=== PATIENT | female | born 1970 | race Caucasian/White ===

== ENCOUNTER 2018-06-13 10:35 | Emergency (ER) | payer OTHER ==
[2018-06-13 11:33] LABS: ABSOLUTE EOSINOPHILS # (AUTO) 0.1 10^3/uL (0.0-0.6); ABSOLUTE LYMPHOCYTES (AUTO) 1.9 10^3/uL (0.5-4.7); ABSOLUTE MONOCYTES (AUTO) 0.3 10^3/uL (0.1-1.4); ABSOLUTE NEUT (AUTO) 5.8 10^3/uL (1.7-8.2); BASOPHILS % (AUTO) 0.5 % (0-2); EOSINOPHILS % (AUTO) 1.1 % (0-6); HEMATOCRIT 39.2 % (36.0-47.0); HEMOGLOBIN 13.3 g/dL (12.0-15.5); MEAN CORPUSCULAR HGB CONC 33.9 g/dL (32.0-36.0); MEAN CORPUSCULAR VOLUME 92 fl (80-97); MONOCYTES % (AUTO) 4.1 % (3-13); PLATELET COUNT 363 10^3/uL (150-450); RED BLOOD COUNT 4.28 10^6/uL (3.72-5.28); SEGMENTED NEUTROPHILS % (AUTO) 71.3 % (42-78); TOTAL CELLS COUNTED % (AUTO) 100 %; WHITE BLOOD COUNT 8.1 10^3/uL (4.0-10.5)
[2018-06-13 11:38] LABS: ALANINE AMINOTRANSFERASE 33 U/L (9-52); ALBUMIN 4.5 g/dL (3.5-5.0); ALKALINE PHOSPHATASE 72 U/L (38-126); ANION GAP 11 (5-19); ASPARTATE AMINO TRANSFERASE 31 U/L (14-36); BILIRUBIN,DIRECT 0.3 mg/dL (0.0-0.4); BILIRUBIN,TOTAL 0.5 mg/dL (0.2-1.3); BLOOD UREA NITROGEN 9 mg/dL (7-20); CALCIUM 9.2 mg/dL (8.4-10.2); CARBON DIOXIDE 24 mmol/L (22-30); CHLORIDE 102 mmol/L (98-107); GLUCOSE 111 mg/dL (75-110); POTASSIUM 4.1 mmol/L (3.6-5.0); SODIUM 137.1 mmol/L (137-145); TOTAL PROTEIN 7.3 g/dL (6.3-8.2)
[2018-06-13 11:47] LABS: CREATINE KINASE MB 0.81 ng/mL (<4.55)
[2018-06-13 11:49] LABS: TROPONIN I < 0.012 ng/mL
[2018-06-13] MEDS ORDERED: NITROGLYCERIN 0.4 MG/TAB 25 TAB/BOTTLE ONE (12:02)
[2018-06-13] MEDS: NITROGLYCERIN 0.4 MG/TAB 25 TAB/BOTTLE SL PRN ×2 (12:05→13:26)
--- NOTE | 2018-06-13 12:16 | ER Document Report ---
ED Cardiac - General Stated Complaint: CHEST PAIN Time Seen by Provider: 06/13/18 11:02 Notes: Patient is a 48-year-old female who has been experiencing some atypical chest pains, palpitations, and high blood pressure. Her primary care provider, Dr. Laird at [facility], referred the patient to Dr. Anderson. Patient was at Dr. Anderson office this morning undergoing an exercise stress test. Just 2 minutes into the procedure, patient began to feel heaviness on her chest and her blood pressure went to 236 systolic and her pulse rate went to 136. The procedu re was terminated. Patient never had any EKG changes. She was given a couple of nitroglycerin sublingually and her symptoms of feeling pressure on her chest, like an elephant, dissipated. Dr. Anderson called to [facility] in [place] planning on transferring the patient there to go to the [facility]. EMS was called to transport the patient, but because of some equipment problem, they were unable to take her to [place] and brought her here. At this time, patient is asymptomatic. Her vital signs are all normal. Patient also had some shortness of breath. Denies any nausea or vomiting. [place] some lightheadedness. TRAVEL OUTSIDE OF THE [place] IN LAST 30 DAYS: No - Related Data Allergies/Adverse Reactions: Sulfa (Sulfonamide Antibiotics) Allergy (Severe, Verified 11/14/13 09:37) Hives, throat swelling povidone-iodine [From Betadine] Adverse Reaction (Intermediate, Verified 11/14/13 09:37) skin peels bethanechol chloride [From Urecholine] Adverse Reaction (Unknown, Verified 01/23/14 11:57) DIZZY AND LIGHT HEADED oxycodone [Oxycodone] Adverse Reaction (Unknown, Verified 01/23/14 11:57) DIZZY AND LIGHT HEADED Past Medical History - Social History Smoking Status: Unknown if Ever Smoked Cigarette use (# per day): No Chew tobacco use (# tins/day): No Frequency of alcohol use: Occasional Drug Abuse: None Family History: Reviewed & Not Pertinent. denies: CAD Patient has suicidal ideation: No Patient has homicidal ideation: No - Past Medical History Cardiac Medical History: Reports: Hx Hypercholesterolemia Denies: Hx Coronary Artery Disease Neurological Medical History: Reports: Hx Migraine GI Medical History: Reports: Hx Gastroesophageal Reflux Disease Psychiatric Medical History: Reports: Hx Depression Past Surgical History: Reports: Hx Hysterectomy - Immunizations Hx Diphtheria, Pertussis, Tetanus Vaccination: Yes Review of Systems - Review of Systems Notes: REVIEW OF SYSTEMS: CONSTITUTIONAL : Denies fever. EENT: Denies eye, ear, nose or mouth or throat pain or other symptoms. CARDIOVASCULAR: See HPI. RESPIRATORY: Denies cough, chest congestion, or shortness of breath. GASTROINTESTINAL: Denies abdominal pain or nausea, vomiting, or diarrhea. GENITOURINARY: Denies difficulty or painful urinating, urinary frequency, blood in urine. MUSCULOSKELETAL: Denies back or neck pain. Denies joint pain or swelling. SKIN: Denies rash or skin lesions. NEUROLOGICAL: Denies LOC or altered mental status. History of migraine headaches. Denies sensory loss or motor deficits. Psychiatric: History of depression and anxiety. ALL OTHER SYSTEMS REVIEWED AND NEGATIVE. Physical Exam - Vital signs Vitals: Pulse Ox 98 06/13/18 10:41 Interpretation: Normal Notes: PHYSICAL EXAMINATION: GENERAL: Well-appearing, in no acute distress. Anxious. Vital signs all essentially normal. HEAD: Atraumatic, normocephalic. EYES: Pupils equal round and reactive to light, extraocular movements intact. ENT: oropharynx clear without exudates. Moist mucous membranes. NECK: Normal range of motion, supple. LUNGS: Breath sounds clear and equal bilaterally. HEART: Regular rate and rhythm without murmurs. ABDOMEN: Soft, nontender. No guarding or rebound. No masses. BACK: No tenderness throughout entire back. EXTREMITIES: Normal range of motion without pain. Negative Homans bilaterally. NEUROLOGICAL: Normal speech, normal gait. Normal sensory, motor, and reflex exams. Awake, alert, and oriented x3. Cranial nerves normal. PSYCH: Normal mood, normal affect. Anxious. SKIN: Warm, dry, no rashes. Course - Re-evaluation Re-evalutation: 06/13/18 12:16 Complaining of jaw pain. Ordered nitroglycerin tab sublingual. Spoke with Dr. Anderson who tells me that patient was about 2 minutes into her stress test when she had a heart rate of over 136 and a blood pressure systolic of 236 when the procedure was terminated. He tells me that his plan was to have the patient sent to [facility] for cardiac cath but EMS did not have the equipment to be able to transport patient from his office to [place] so she was brought here. 06/13/18 13:[address] Julien in [place] and he has accepted the patient for transfer. Patient is now complaining of chest pain and was started on a nitroglycerin drip. EKG #2 is the same as #1 and normal. 06/13/18 16:34 Patient's transport is here to take her to [place]. Her only complaint at this time is persistent headache. She had a couple of milligrams of morphine earlier and I am going to give her another couple of milligrams of morphine now. She had some nausea and we gave her Zofran for that. - Vital Signs Vital signs: Temp Pulse Resp BP Pulse Ox 98.0 F 20 153/91 H 100 06/13/18 16:56 06/13/18 16:51 06/13/18 16:51 06/13/18 16:41 - Laboratory Result Diagrams: 06/13/18 10:20 06/13/18 10:20 Laboratory results interpreted by me: 06/13/18 10:20 Glucose 111 H - Diagnostic Test Radiology results interpreted by me: 06/13/18 16:37 Chest x-ray is normal. - EKG Interpretation by Id EKG shows normal: Sinus rhythm Rate: Normal Rhythm: NSR Additional EKG results interpreted by me: 06/13/18 16:35 EKG has no acute changes. No STEMI. Critical Care Note - Critical Care Note Total time excluding time spent on procedures (mins): 50 Discharge - Discharge Clinical Impression: Chest pain Condition: Stable Disposition: [facility]
--- NOTE | 2018-06-13 12:22 | RADIOLOGY REPORT (SQ) ---
EXAM DESCRIPTION: CHEST SINGLE VIEW COMPLETED DATE/TIME: 06/13/2018 12:12 pm REASON FOR STUDY: Chest pain COMPARISON: 05/26/2015. EXAM PARAMETERS: NUMBER OF VIEWS: One view. TECHNIQUE: Single frontal radiographic view of the chest acquired. RADIATION DOSE: NA LIMITATIONS: None. FINDINGS: LUNGS AND PLEURA: No opacities, masses or pneumothorax. No pleural effusion. MEDIASTINUM AND HILAR STRUCTURES: No masses. Contour normal. HEART AND VASCULAR STRUCTURES: Heart normal in size. Normal vasculature. BONES: No acute findings. HARDWARE: None in the chest. OTHER: No other significant finding. IMPRESSION: NO ACUTE RADIOGRAPHIC FINDING IN THE CHEST. TECHNICAL DOCUMENTATION: JOB ID: [id number] [employer] All Rights Reserved Reading location - IP/workstation name: [email or web address]
[2018-06-13] MEDS ORDERED: NITROGLYCERIN/D5W 50 MG/250 ML RTUINJ IV PRN (14:28)
[2018-06-13] MEDS ORDERED: ONDANSETRON HCL INJ/PF 4 MG/2 ML SDV IV ONE (14:42)
[2018-06-13] MEDS ORDERED: ACETAMINOPHEN 325 MG TABLET PO ONE (14:43)
[2018-06-13] MEDS ORDERED: MORPHINE SULFATE 10 MG/ML INJ IV ONE ×2 (14:57→16:33)
[2018-06-13 16:56] VITALS: BP 153/91
--- NOTE | 2018-06-13 21:12 | EKG REPORT ---
SEVERITY:- BORDERLINE ECG - SINUS RHYTHM BORDERLINE T ABNORMALITIES, ANTERIOR LEADS : Confirmed by: Neli Kaba MD 13-Jun-2018 21:11:37
--- NOTE | 2018-06-13 21:12 | EKG REPORT ---
SEVERITY:- BORDERLINE ECG - SINUS RHYTHM BORDERLINE T ABNORMALITIES, ANTERIOR LEADS : Confirmed by: Neli Kaba MD 13-Jun-2018 21:11:41
== END 2018-06-13 17:11 | disposition short-term general hospital (02) ==
LOC: ER 10:35
DX: R07.89 Other chest pain (principal); R00.2 Palpitations; I10 Essential (primary) hypertension; R06.02 Shortness of breath; R68.84 Jaw pain; R51 Headache; R11.0 Nausea; Z88.2 Allergy status to sulfonamides
CPT/HCPCS: 93005; 96376; 99291; 96375; 96365; 96366; 36415; 82553; 83690; 85025; 80053; 84484; 71045; 93010; J2270; J2405; J3490

== ENCOUNTER 2018-07-01 09:33 | Day surgery (SDC) | payer OTHER ==
[~2018-07-01 09:33] MED LIST: PROPOFOL INJ 200 MG/20 ML VIAL IV ONE
[2018-07-01 11:53] VITALS: BP 153/95
--- NOTE | 2018-07-01 13:59 | Operative Report ---
Operative Report DATE OF SURGERY: 07/01/18 Operative Report: The risks benefits and alternatives of the procedure explained to the patient in detail and informed consent is obtained.A GIF Olympus video scope was inserted into the patient's mouth and hypopharynx, the esophagus is identified intubated and insufflated ,the scope was then advanced through the esophagus stomach and duodenum, retroflexion maneuver is done, the esophagus stomach and first and second portions of the duodenum examined. PREOPERATIVE DIAGNOSIS: Epigastric pain rule out peptic ulcer disease POSTOPERATIVE DIAGNOSIS: Gastritis status post biopsy for Helicobacter pylori. Hiatal hernia OPERATION: EGD with biopsy SURGEON: ALFONSO HOOKER ANESTHESIA: LMAC TISSUE REMOVED OR ALTERED: As noted above. COMPLICATIONS: None. ESTIMATED BLOOD LOSS: None. INTRAOPERATIVE FINDINGS: As noted above. PROCEDURE: Patient tolerated the procedure well. No immediate postprocedure complications are noted. Patient discharged in good condition. Discharge date 07/01/2018. Discharge diet: Regular. Discharge activity: Regular. 2-3-week follow-up to discuss findings. Patient is instructed call the office or proceed to the emergency room should there be any further proximal questions. Wait on the pathology.
== END 2018-07-01 11:24 | disposition home or self-care (01) ==
LOC: END 09:33
PROVIDERS: ATTEND Internal Medicine Gastroenterology
DX: K29.50 Unspecified chronic gastritis without bleeding (principal); K44.9 Diaphragmatic hernia without obstruction or gangrene; K21.0 Gastro-esophageal reflux disease with esophagitis; Z88.2 Allergy status to sulfonamides; Z88.5 Allergy status to narcotic agent; E78.5 Hyperlipidemia, unspecified
CPT/HCPCS: 43239; 88305 ×2; J2704; 731

== ENCOUNTER → 2018-11-06 | Outpatient (CLI) | payer OTHER ==
--- NOTE | 2018-11-06 09:41 | RADIOLOGY REPORT (SQ) ---
EXAM DESCRIPTION: CT ABD/PELVIS WITH IV ONLY COMPLETED DATE/TIME: 11/06/2018 7:55 am REASON FOR STUDY: VENTRAL HERNIA W/O OBSTRUCTION OR GANGRENE (K43.9) K43.9 VENTRAL HERNIA WITHOUT O BSTRUCTION OR GANGRENE COMPARISON: 11/23/2013 TECHNIQUE: CT scan of the abdomen and pelvis performed using helical scanning technique with dynamic intravenous contrast injection. No oral contrast. Images reviewed with lung, soft tissue, and bone windows. Reconstructed coronal and sagittal MPR images reviewed. Delayed images for evaluation of the urinary system also acquired. All images stored on PACS. All CT scanners at this facility use dose modulation, iterative reconstruction, and/or weight based d osing when appropriate to reduce radiation dose to as low as reasonably achievable (ALARA). [facility]: Dose Right [facility]: CareDose [facility]: Dose Right [facility]: Teradose 4D [facility]: Digitwhiz CONTRAST TYPE AND DOSE: contrast/concentration: Isovue 350.00 mg/ml; Total Contrast Delivered: 100.0 ml; Total Saline Delivered: 72.0 ml RENAL FUNCTION: Creatinine 1.0 RADIATION DOSE: CT Rad equipment meets quality standard of care and radiation dose reduction techniq ues were employed. CTDIvol: 14.5 - 16.4 mGy. DLP: 1604 mGy-cm.. LIMITATIONS: None. FINDINGS: LOWER CHEST: No significant findings. No nodules or infiltrates. LIVER: Normal size. No masses. No dilated ducts. SPLEEN: Normal size. No focal lesions. PANCREAS: No masses. No significant calcifications. No adjacent inflammation or peripancreatic fluid collections. Pancreatic duct not dilated. GALLBLADDER: No identified stones by CT criteria. No inflammatory changes to suggest cholecystitis. ADRENAL GLANDS: No significant masses or asymmetry. RIGHT KIDNEY AND URETER: No solid masses. No significant calcifications. No hydronephrosis or hyd roureter. LEFT KIDNEY AND URETER: No solid masses. No significant calcifications. No hydronephrosis or hydr oureter. AORTA AND VESSELS: No aneurysm. No dissection. Renal arteries, SMA, celiac without stenosis. RETROPERITONEUM: No retroperitoneal adenopathy, hemorrhage or masses. BOWEL AND PERITONEAL CAVITY: No masses or inflammatory changes. No free fluid or peritoneal masses. APPENDIX: Normal. PELVIS: No mass. No free fluid. Normal bladder. ABDOMINAL WALL: Surgical motion the pelvic anterior wall. Right upper quadrant anterior abdominal wa ll fat containing hernia measuring about 2.2 cm in transverse diameter. BONES: No significant or acute findings. OTHER: No other significant finding. IMPRESSION: Right upper quadrant fat containing hernia status post pelvic hernia repair. TECHNICAL DOCUMENTATION: JOB ID: [id number] Quality ID # [id number]: Final reports with documentation of one or more dose reduction techniques (e.g., Au tomated exposure control, adjustment of the mA and/or kV according to patient size, use of iterative reconstruction technique) 2010 [employer]- All Rights Reserved Reading location - IP/workstation name: [email or web address]
== END ==
LOC: RAD 07:26
PROVIDERS: ATTEND Surgery
DX: K43.9 Ventral hernia without obstruction or gangrene (principal)
CPT/HCPCS: 74177; 82565

== ENCOUNTER 2019-02-21 09:39 | Day surgery (SDC) | payer OTHER ==
[2019-02-17 09:58] LABS: HEMATOCRIT 40.6 % (36.0-47.0); HEMOGLOBIN 13.7 g/dL (12.0-15.5); MEAN CORPUSCULAR HEMOGLOBIN 31.1 pg (27.0-33.4); MEAN CORPUSCULAR HGB CONC 33.8 g/dL (32.0-36.0); MEAN CORPUSCULAR VOLUME 92 fl (80-97); PLATELET COUNT 348 10^3/uL (150-450); RED BLOOD COUNT 4.41 10^6/uL (3.72-5.28); RED CELL DISTRIBUTION WIDTH 12.8 % (11.5-14.0); WHITE BLOOD COUNT 6.3 10^3/uL (4.0-10.5)
[2019-02-17 10:36] LABS: ANION GAP 10 (5-19); BLOOD UREA NITROGEN 12 mg/dL (7-20); CARBON DIOXIDE 26 mmol/L (22-30); CHLORIDE 105 mmol/L (98-107); GLUCOSE 109 mg/dL (75-110); POTASSIUM 4.5 mmol/L (3.6-5.0)
--- NOTE | 2019-02-17 12:08 | EKG REPORT ---
SEVERITY:- BORDERLINE ECG - SINUS RHYTHM BORDERLINE T ABNORMALITIES, ANTERIOR LEADS : Confirmed by: Neli Kaba MD 17-Feb-2019 12:08:06
--- NOTE | 2019-02-17 12:59 | RADIOLOGY REPORT (SQ) ---
EXAM DESCRIPTION: CHEST PA/LATERAL COMPLETED DATE/TIME: 02/17/2019 10:23 am REASON FOR STUDY: PRE-OP COMPARISON: 06/13/2018 EXAM PARAMETERS: NUMBER OF VIEWS: two views TECHNIQUE: Digital Frontal and Lateral radiographic views of the chest acquired. RADIATION DOSE: NA LIMITATIONS: none FINDINGS: LUNGS AND PLEURA: No opacities, masses or pneumothorax. No pleural effusion. MEDIASTINUM AND HILAR STRUCTURES: No masses or contour abnormalities. HEART AND VASCULAR STRUCTURES: Heart normal size. No evidence for failure. BONES: No acute findings. HARDWARE: None in the chest. OTHER: No other significant finding. IMPRESSION: NO SIGNIFICANT RADIOGRAPHIC FINDING IN THE CHEST. TECHNICAL DOCUMENTATION: JOB ID: [id number] [employer]- All Rights Reserved Reading location - IP/workstation name: [email or web address]
[~2019-02-21 09:39] MED LIST changes: +ACETAMINOPHEN 1,000 MG/100 ML RTUPB IV ONE; +ACETAMINOPHEN 1,000 MG/100 ML RTUPB IV PRN; +CEFAZOLIN SODIUM 2 GM in DEXTROSE 5%-WATER 100 ML IV PRN; +IBUPROFEN 800 MG in NORMAL SALINE 250 ML IV PRN; +LACTATED RINGERS 1000 ML IV PRN; +LIDOCAINE 0.5% INJ-PF (5 MG/ML) 50 ML SDV SUBCUT PRN; +PREGABALIN 50 MG CAPSULE ONE; +PREGABALIN 50 MG CAPSULE PO PRN; -PROPOFOL INJ 200 MG/20 ML VIAL IV ONE
[2019-02-21] MEDS ORDERED: VECURONIUM BROMIDE INJ 10 MG VIAL IV ONE (10:12)
[2019-02-21] MEDS ORDERED: NEOSTIGMINE METHYLSULFATE 10 MG/10 ML VIAL ONE (10:12)
[2019-02-21] MEDS ORDERED: GLYCOPYRROLATE 1 MG/5 ML VIAL ONE (10:12)
[2019-02-21] MEDS ORDERED: DEXAMETHASONE SOD PHOSPHATE INJ 4 MG/1 ML VIAL ONE (10:12)
[2019-02-21] MEDS ORDERED: ONDANSETRON HCL INJ/PF 4 MG/2 ML SDV ONE (10:12)
[2019-02-21] MEDS ORDERED: LIDOCAINE 2% INJ-PF (20 MG/ML) 2 ML AMPUL ONE (10:12)
[2019-02-21] MEDS ORDERED: ROCURONIUM BROMIDE INJ 50 MG/5 ML VIAL IV ONE (10:12)
[2019-02-21] MEDS ORDERED: METOCLOPRAMIDE HCL INJ/PF 10 MG/2 ML SDV ONE (10:53)
[2019-02-21] MEDS ORDERED: MIDAZOLAM 2 MG/2 ML INJ ONE ×2 (10:53→12:24)
[2019-02-21] MEDS ORDERED: FAMOTIDINE INJ/PF 20 MG/2 ML SDV IV ONE (10:53)
[2019-02-21] MEDS ORDERED: CITRIC ACID/SODIUM CITRATE ORAL SOLN 15 ML UDCUP ONE (10:53)
[2019-02-21] MEDS ORDERED: BUPIVACAINE HCL 0.25 % INJ/PF (2.5 MG/1 ML) 30 ML VIAL ONE (12:23)
[2019-02-21] MEDS ORDERED: HYDROMORPHONE HCL INJ/PF 2 MG/ML AMPULE ONE (12:24)
[2019-02-21] MEDS ORDERED: FENTANYL CITRATE INJ/PF 250 MCG/5 ML AMPULE ONE (12:24)
[2019-02-21] MEDS ORDERED: PROPOFOL INJ 200 MG/20 ML VIAL IV ONE (12:25)
[2019-02-21] MEDS ORDERED: DIPHENHYDRAMINE HCL 50 MG/ML VIAL IV PRN (13:13)
[2019-02-21] MEDS ORDERED: PROMETHAZINE HCL INJ 25 MG/1 ML VIAL IV PRN (13:13)
[2019-02-21] MEDS ORDERED: MEPERIDINE HCL/PF INJ 25 MG/1 ML DISP.SYRIN IV PRN (13:13)
[2019-02-21] MEDS ORDERED: FENTANYL CITRATE INJ/PF 100 MCG/2 ML AMPUL IV PRN ×2 (13:13)
[2019-02-21] MEDS ORDERED: MORPHINE SULFATE 10 MG/ML INJ IV PRN (13:13)
[2019-02-21] MEDS ORDERED: BUPIVACAINE HCL 0.25 % INJ/PF (2.5 MG/1 ML) 30 ML VIAL INJ ONE (13:32)
[2019-02-21] MEDS ORDERED: FENTANYL CITRATE INJ/PF 100 MCG/2 ML AMPUL ONE (16:22)
--- NOTE | 2019-02-21 16:24 | Discharge Summary ---
Discharge Summary (SDC) - Discharge Final Diagnosis: Recurrent ventral hernia, Naur[place] cheese defect. Date of Surgery: 02/21/19 Discharge Date: 02/21/19 Condition: Stable Treatment or Instructions: Discharge home. Diet as tolerated. Activity: No lifting greater than 10 pounds x 6 weeks. Follow-up with me in 7 to 10 days. Okay to shower on Sunday. No swimming pools or tub baths x2 weeks. [place] 10/325 mg p.o. every 6 hours as needed for pain. Ibuprofen 800 mg p.o. 3 times daily with meals. Referrals: BREEZY LEARY MD [Primary Care Provider] - Discharge Diet: As Tolerated Respiratory Treatments at Home: Deep Breathing/Coughing, Incentive Spirometer Discharge Activity: No Lifting Over 10 Pounds, No Lifting/Push/Pulling Home Care Assistance: Provided by Family Report the Following to Your Physician Immediately: Shortness of Breath, Nausea, Vomiting, Increase in Pain, Fever over 101 Degrees, Unusual Bleeding, Redness
[2019-02-21] MEDS: FENTANYL CITRATE INJ/PF 100 MCG/2 ML AMPUL IV PRN ×2 (16:30→16:39)
[2019-02-21] MEDS ORDERED: HYDROCODONE/ACETAMINOPHEN 10-325 MG TABLET PO PRN (16:30)
[2019-02-21] MEDS ORDERED: IBUPROFEN 800 MG TABLET PO SCH (17:00)
[2019-02-21] MEDS ORDERED: HYDROCODONE/ACETAMINOPHEN 10-325 MG TABLET ONE (17:15)
[2019-02-21 19:56] VITALS: BP 112/71
--- NOTE | 2019-02-25 08:41 | Operative Report ---
Nonrecallable Operative Report DATE OF SURGERY: 02/21/19 PREOPERATIVE DIAGNOSIS: Recurrent ventral incisional hernia POSTOPERATIVE DIAGNOSIS: 1. Recurrent, incarcerated, incisional ventral hernia at the upper hernia mesh. 2. 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 3. Lower midline hernia mesh appears in place, without recurrence. OPERATION: Robot-assisted laparoscopic recurrent ventral, incisional, incarcerated hernia repair with mesh SURGEON: BETHANY RESTREPO ANESTHESIA: GA TISSUE REMOVED OR ALTERED: Old supraumbilical hernia mesh COMPLICATIONS: None apparent ESTIMATED BLOOD LOSS: Minimal PROCEDURE: Drains/implants: Ventralight ST hernia mesh, 20 x 15 cm. Procedure in detail: After informed consent was obtained, the patient was brought to the operating room and laid in the supine position. The area of the abdomen was prepped and draped in a normal sterile fashion. A left upper quadrant incision was created with a 15 blade scalpel. A 5 mm trocar was introduced into the abdomen under direct laparoscopic visualization, using the Optiview technique. Once the 5 mm trocar was inserted, gas insufflation was attached, and pneumoperitoneum was achieved. Next, a 12 mm balloon trocar was placed in the left lateral abdomen. An 8 mm robotic trocar was placed in the left lower quadrant. The 5 mm trocar was then removed, and replaced with an 8 mm robotic trocar. The robot was brought over the patient and docked appropriately. I then assumed my position at the surgeon's console. Attention was turned to lysis of omental adhesions and reduction of the incarcerated hernia. There was a large amount of omentum protruding through the recurrent ventral hernia defect. Once this was all returned to the abdominal cavity, the superiormost hernia mesh was not adequately covering the defect. It was removed using a mixture of sharp dissection and electrocautery. Next, attention was turned to examination of the remaining abdominal wall. The lower abdominal wall had a hernia mesh in situ. This appeared to be adequately covering the lower abdominal defect. There is no obvious hernia or recurrence in this position. Secondary to this, the abdominal wall was closed superior to the lower abdominal wall hernia mesh. #1 V Lock Suture was used in simple, running, overlapping fashion to reapproximate the rectus muscles in the midline. Once this was completed, a 15 x [address] hernia mesh was chosen to adequately cover the defect. The hernia mesh was then sutured to the anterior abdominal wall using 2-0 V Lock Suture in simple running fashion, circumferentially. Once this was completed, the mesh was inspected, and found to lie in good position. The robot was then undocked, and I scrubbed back into the case. The 8 mm robotic trochars were closed using 0 Vicryl suture in simple interrupted fashion with the aid of the Robb-Isaías device. The 12 mm trocar was also closed with the Robb-Isaías device and 0 Vicryl suture in [id number] fashion. Next, the overlying skin was closed using 4-0 Vicryl Rapide suture in subcuticular fashion. Dressings were placed, and the procedure was concluded. All sponge, instrument, and needle counts were correct x2. Condition: Stable.
== END 2019-02-21 19:40 | disposition home or self-care (01) ==
LOC: OROUT 09:39
PROVIDERS: ATTEND Surgery
DX: K43.0 Incisional hernia with obstruction, without gangrene (principal); E66.9 Obesity, unspecified; Z79.899 Other long term (current) drug therapy; F98.8 Other specified behavioral and emotional disorders with onset usually occurring in childhood and adolescence
CPT/HCPCS: 49657; S2900; 36415; 71046; 752; 80048; 85027; 86850; 86900; 86901; 93005; 93010; C1781; J0131; J0690; J1100; J1170; J1741; J2250; J2405; J2704; J2710; J2765; J3010; J3490; J7050; J7060; S0028